=== PATIENT | female | born 1950 | race Caucasian/White ===

== ENCOUNTER → 2018-06-23 | Outpatient (CLI) | payer MEDICARE | END | disposition home or self-care (01) | LOC: PCVCCLINIC 14:24 | PROVIDERS: ATTEND Internal Medicine | DX: R07.89 Other chest pain (principal); R01.1 Cardiac murmur, unspecified; E78.5 Hyperlipidemia, unspecified; G47.33 Obstructive sleep apnea (adult) (pediatric); Z87.891 Personal history of nicotine dependence | CPT/HCPCS: 93005; G0463 ==

== ENCOUNTER → 2018-07-08 | Outpatient (CLI) | payer MEDICARE ==
[~2018-07-08] MED LIST: REGADENOSON 0.4 MG/5 ML DISP.SYRIN. IV ONE
--- NOTE | 2018-07-08 10:45 | PCVCIMAG ---
APPROVED REPORT Study performed: 07/08/2018 08:40:16 EXAM: Comprehensive 2D, Doppler, and color-flow Echocardiogram Patient Location: Echo lab Status: routine BSA: 1.83 HR: 68 bpmBP: 142/78 mmHg Rhythm: Interventricular conduction delay w/ PVCs Other Information Study Quality: Adequate Indications Murmur Dyspnea Chest Pain 2D Dimensions IVSd: 9.62 (7-11mm) LVDd: 62.48 mm PWd: 9.45 (7-11mm)Ascending Ao: 36.05 (22-36mm) LVDs: 50.78 (25-40mm) Left Atrium: 37.94 (27-40mm) Aortic Root: 29.41 mm LV Single Plane 4CH: 33.06 % LV Single Plane 2CH: 33.30 % Biplane EF: 32.7 % Volumes Left Atrial Volume (Systole) Single Plane 4CH: 52.88 mLSingle Plane 2CH: 70.28 mL LA ESV Index: 34.00 mL/m2 Aortic Valve AoV Peak Darrel.: 1.50 m/s AO Peak Gr.: 8.98 mmHgLVOT Max P.96 mmHg LVOT Max V: 0.86 m/s AI Vmax: 3.72 m/s AI Jerauld: 2.34 m/s2 AI PHT: 462.98 ms Mitral Valve E/A Ratio: 0.7 MV Decel. Time: 187.14 ms MV E Max Darrel.: 1.04 m/s MV A Darrel.: 1.40 m/s IVRT: 162.63 ms Pulmonary Valve PV Peak Darrel.: 1.03 m/sPV Peak Gr.: 4.20 mmHg Pulmonary Vein P Vein S: 0.22 m/sP Vein A: 0.28 m/s P Vein D: 0.39 m/sP Vein A Dur.: 131.5 msec P Vein S/D Ratio: 0.56 Tricuspid Valve TR Peak Darrel.: 2.36 m/s TR Peak Gr.: 22.33 mmHg Left Ventricle Left ventricle is dilated. Septal akinesis present There is normal left ventricular wall thickness. Left ventricular ejection fraction is severely decreased. LVEF is 30-35%. Grade I - abnormal relaxation pattern. Right Ventricle The right ventricle is normal size. The right ventricular systolic function is normal. Atria The left atrium size is normal. The right atrium size is normal. Aortic Valve The aortic valve is normal in structure. Mild aortic regurgitation. There is no aortic valvular stenosis. Mitral Valve The mitral valve is normal in structure. Mild to moderate mitral regurgitation. No evidence of mitral valve stenosis. Tricuspid Valve The tricuspid valve is normal in structure. Trace tricuspid regurgitation with PAP of 29 mmHg. Pulmonic Valve The pulmonary valve is normal in structure. There is no pulmonic valvular regurgitation. Great Vessels The aortic root is normal in size. IVC is normal in size and collapses >50% with inspiration. Pericardium There is no pericardial effusion. There is no pleural effusion. <Conclusion> Left ventricle is dilated. Left ventricular ejection fraction is severely decreased. LVEF is 30-35%. Septal akinesis present The aortic valve is normal in structure. Mild aortic regurgitation. The mitral valve is normal in structure. Mild to moderate mitral regurgitation. The tricuspid valve is normal in structure. Trace tricuspid regurgitation with PAP of 29 mmHg. There is no pericardial effusion.
--- NOTE | 2018-07-08 16:03 | PCVCIMAG ---
APPROVED REPORT Imaging Protocol: Rest Tc-99m/Stress Tc-99m 1 day Study performed: 07/08/2018 09:09:52 Indication: Chest Pressure radiating to R arm, Dyspnea on Exertion Stress Nurse: Shanon Ramon RN [place] Tech:Amandajessa Coffman [facility] Ht: 5 ft 6 in Wt: 190 lbs BSA: 1.96 m2 HR: 74 bpm BP: 137/67 mmHg BMI: 30.6 Rhythm: SR Medical History Medical History: AGE, FORMER SMOKER, MURMUR Medications: ASA, MELOXICAM, SIMVASTATIN Allergies: No known drug allergies Exercise History: Sedentary Physical Disabilities: Back Resting Data Rest SPECT myocardial perfusion imaging was performed in supine position 60 minutes following the intravenous injection of 10.9 mCi of Tc-99m Sestamibi. Time of rest injection: 949 Date: 07/08/2018 Administration Route: IV Administration Site: Left AC Pharmacologic Stress Pharmacologic stress test was performed by injecting Regadenoson 0.4 mg IV push over 10-15 seconds immediately followed by the intravenous injection of 32.1 mCi of Tc-99m Sestamibi. Time of stress injection: 1115 Date: 07/08/2018 Administration Route: IV Administration Site: Left AC Gated Stress SPECT was performed 60 minutes after stress injection. The images were gated to evaluate regional wall motion and calculate left ventricular ejection fraction. Stress Test Details Stress Test: Pharmacologic stress was paired with low level exercise. Reason for pharmacologic stress test: PHYSICAL LIMITATIONS. HRMax Heart Rate (APMHR): 152 bpm Resting HR: 74 bpmTarget HR (85% APMHR): 129 bpm Max HR Achieved: 137 bpm % of APMHR: 90 Recovery HR: 88 bpm BP Resting BP: 137/67 mmHg Recovery BP: 173/85 mmHg ECG Resting ECG: Sinus Rhythm, IVCD Stress ECG: Sinus Tachycardia, IVCD Arrhythmia: PVC'S Recovery ECG: Sinus Rhythm, IVCD Clinical Reason for Termination: Completed protocol Stress Symptoms: DYSPNEA, FATIGUE, LIGHTHEADED Exercise duration: 4 min sec Exercise capacity: 1.60 METs PATIENT RECOVERED WITH CAFFEINE Stress ECG Conclusion 1. Adequate response to intravenous Lexiscan 2. Inadequate heart rate for an ECG diagnosis Study Data Post stress, the left ventricular ejection was 23%.. SSS: 12 SRS: 17 SDS: 0 TID = 1.04. Perfusion There is a medium area of severely reduced uptake in the mid and apical segment of the anterior wall which is seen on the stress images as well as the resting images. This area is akinetic and is most consistent with myocardial scar. Nuclear Conclusion ECG Findings: non-diagnostic Clinical Findings: negative for ischemia Nuclear Findings: negative for ischemia although there is evidence of decreased uptake which is nonreversible Exercise Capacity: not assessed Left Ventricular Function: abnormal 1. No evidence of inducible ischemia identified 2. Scintigraphic pattern consistent with cardiomyopathic process Interpreted by: Yulisa Ricardo MD Electronically Approved: 07/08/2018 16:02:17 <Conclusion> 1. Adequate response to intravenous Lexiscan 2. Inadequate heart rate for an ECG diagnosis
== END | disposition home or self-care (01) ==
LOC: PCVCIMAG 09:06
PROVIDERS: ATTEND Internal Medicine
DX: I35.1 Nonrheumatic aortic (valve) insufficiency (principal); E78.5 Hyperlipidemia, unspecified; Z87.891 Personal history of nicotine dependence
CPT/HCPCS: 78452; 93017; 93306; A9500; J2785

== ENCOUNTER → 2018-07-19 | Outpatient (CLI) | payer MEDICARE | END | disposition home or self-care (01) | LOC: PCVCCLINIC 15:55 | PROVIDERS: ATTEND Internal Medicine | DX: I42.8 Other cardiomyopathies (principal); I50.20 Unspecified systolic (congestive) heart failure; R01.1 Cardiac murmur, unspecified; Z79.82 Long term (current) use of aspirin | CPT/HCPCS: 36415; G0463 ==

== ENCOUNTER → 2018-07-26 | Outpatient (CLI) | payer MEDICARE | END | disposition home or self-care (01) | LOC: PCVCCLINIC 13:36 | PROVIDERS: ATTEND Internal Medicine | DX: I42.8 Other cardiomyopathies (principal); I50.22 Chronic systolic (congestive) heart failure; R94.39 Abnormal result of other cardiovascular function study; R01.1 Cardiac murmur, unspecified; E78.00 Pure hypercholesterolemia, unspecified; Z87.891 Personal history of nicotine dependence; Z79.82 Long term (current) use of aspirin; Z79.899 Other long term (current) drug therapy | CPT/HCPCS: 93005; G0463 ==

== ENCOUNTER → 2019-02-23 | Outpatient (CLI) | payer MEDICARE ==
--- NOTE | 2019-02-24 09:47 | PCVCIMAG ---
APPROVED REPORT Study performed: 02/23/2019 14:34:49 EXAM: Comprehensive 2D, Doppler, and color-flow Echocardiogram Patient Location: Echo lab Status: routine BSA: 1.82 HR: 54 bpmBP: 100/50 mmHg Rhythm: NSR Other Information Study Quality: Good Risk Factors: Cardiac Risk Factors: HTN, Hyperlipidemia Indications Murmur Cardiomyopathy Left Ventricle Left ventricle is at the upper limits of normal. Regional wall motion abnormalities are noted. LVEF is 30-35%. <Conclusion> Left ventricle is at the upper limits of normal. LVEF is 30-35%. Regional wall motion abnormalities are noted.
== END | disposition home or self-care (01) ==
LOC: PCVCIMAG 14:23
PROVIDERS: ATTEND Internal Medicine
DX: R01.1 Cardiac murmur, unspecified (principal); I42.9 Cardiomyopathy, unspecified; E78.5 Hyperlipidemia, unspecified; R06.09 Other forms of dyspnea
CPT/HCPCS: 36415; 80061; 93308